=== PATIENT | female | born 1955 | race Caucasian/White ===

== ENCOUNTER 2021-08-04 22:28 | Emergency (ER) | payer MEDICARE, OTHER ==
[~2021-08-04] VITALS: Ht 167.6 cm; Wt 72.6 kg
[~2021-08-04 22:28] MED LIST: RISP0.5T5 PO
[2021-08-04] MEDS ORDERED: ONDA4TAB5 PO (22:57)
--- NOTE | 2021-08-04 22:57 | NUR ---
BIB SELF C/O [facility] AND VOMITTING FOR AN UNKNOWN AMOUNT OF TIMES THAT COULD BE MONTHS OR YEARS PER PATIENT. DENIES ANY ABD PAIN, C/P, OR SOB. STATES SHE HAS BEEN SEEN FOR VOMTTING AT [facility] MULTIPLE TIMES AND WAS PRESCRIBED AN UNKNOWN MEDICATION SHE HAS NOT TAKEN "IN A WHILE". NO CURRENT EMESIS PRESENT VSS MD WAS AT BEDSIDE FOR EVAL.
[2021-08-04] MEDS ORDERED: ONDANSETRON 4 MG TAB.RAPDIS ONE (22:58)
[2021-08-04] MEDS ORDERED: ONDANSETRON 4 MG TAB.RAPDIS SL ONE (23:00)
--- NOTE | 2021-08-04 23:01 | NUR ---
Patient discharged to home in stable condition. Written and verbal after care instructions given. Patient verbalizes understanding of instruction.
[2021-08-04 23:06] VITALS: BP 130/73
== END 2021-08-04 23:03 | disposition home or self-care (01) ==
LOC: ER 22:31
DX: R11.2 Nausea with vomiting, unspecified (principal); F17.200 Nicotine dependence, unspecified, uncomplicated; Z90.12 Acquired absence of left breast and nipple; Z79.899 Other long term (current) drug therapy
CPT/HCPCS: 99283; Q0162